=== PATIENT | female | born 1970 | race Caucasian/White ===

== ENCOUNTER 2016-08-06 17:25 | Observation (INO) ==
--- NOTE | 2016-08-06 17:31 | Emergency Department Note ---
Disposition Clinical Impression: Headache, Smoker, Family history of stroke, Left-sided weakness Disposition: Admitted As Inpatient General Adult HPI - General Stated complaint: Headache, nausea, "left side feels funny" Time Seen by Provider: 08/06/16 17:31 - History of Present Illness HPI Narrative: 46-year-old female reports to the emergency department complaining of high blood pressure and a headache. She states her headache has been waxing and waning and is been present for the last day or so. There is no history of sudden "thunder clap" type headache. There is no history of head trauma neck stiffness rash or fever. No convulsions or confusion no trouble walking talking hearing seeing or speaking. The patient reports today the headache got worse at about 12 noon. At about 4:30 PM today she noticed her left upper and left lower extremities getting weaker. There is no history of dysarthria or dysphagia, no difficulty seeing or swallowing. There is no history of chest pain or shortness of breath. No abdominal pain vomiting or diarrhea. There is no history of bowel or bladder problems. No acute back pain. No cough runny nose or ear pain or sore throat. There is no history of currently. The patient is not anticoagulated and has not had recent surgery. She takes she had a history of TIA in the past, she is a smoker and describes a strong family history of cerebrovascular disease. The patient was able to drive herself here. She is able to walk. The patient states she has been taking care of a sick friend. The patient denies significant anxietal symptoms. Patient reports she has occasional migraine headaches, but she has never had neurologic symptoms with those headaches. The patient is worried about a stroke. - Related Data Previous Rx's Medication Instructions Recorded Naproxen [Naprosyn] 500 mg PO BID #10 tablet 10/21/15 Sulfamethoxazole/Trimeth DS 1 each PO BID #14 tablet 05/05/16 [Bactrim DS] Allergies Allergy/AdvReac Type Severity Reaction Status Date / Time No Known Allergies Allergy Verified 05/05/16 20:21 All systems ED: reviewed and negative except as stated. Past Medical History - Past Medical History Medical history: Reports: no medical history, other (Smoker) Psychiatric history: Reports: no psych history - Social History Smoking Status: Current every day smoker Alcohol use: Reports: none Drug use: Reports: none Physical Exam - General Limitations: no limitations - Head Head exam: atraumatic, normocephalic, normal inspection - Eye Eye exam: Present: normal appearance, PERRL, EOMI. Absent: scleral icterus, conjunctival injection, miosis, mydriasis - ENT ENT exam: normal exam, normal oropharynx, mucous membranes moist, TM's normal bilaterally, normal external ear exam - Neck Neck exam: Present: normal inspection, full ROM, trachea midline. Absent: tenderness, meningismus - Chest Chest inspection: Present: symmetric chest wall rise. Absent: tenderness - Respiratory Respiratory exam: Present: normal lung sounds bilaterally. Absent: respiratory distress, wheezes, accessory muscle use, prolonged expiratory phase - Cardiovascular Cardiovascular exam: Present: regular rate, normal rhythm, normal heart sounds - Abdominal Exam Abdominal exam: Present: soft, Non-Tender, normal bowel sounds. Absent: tenderness, distention, guarding, rebound, rigidity - Extremities Exam Extremities exam: Present: normal inspection, full ROM, normal capillary refill. Absent: tenderness, pedal edema, joint swelling, calf tenderness - Expanded Lower Extremity Exam Upper leg exam: Present: normal inspection, full ROM Knee exam: Present: normal inspection, full ROM Lower leg exam: Absent: Homans' sign Ankle exam: Present: normal inspection, full ROM Foot/toe exam: Present: normal inspection, full ROM Neurovascular/Tendon exam: Present: normal capillary refill. Absent: motor deficit, sensory deficit, tendon deficit, extremity cold to touch, pallor - Back Exam Back exam: Present: normal inspection, full ROM. Absent: tenderness, CVA tenderness (R), CVA tenderness (L), vertebral tenderness - Neurological Exam Neurological exam: Present: alert, oriented X3, CN II-XII intact, motor sensory deficit (The patient's muscle strength in the left upper and left lower extremity are weak compared to the right. She does have an abnormal finger to nose test on the left.) - Psychiatric Psychiatric exam: Present: normal affect, normal mood - Skin Skin exam: Present: warm, dry, intact, normal color. Absent: rash, cyanosis, diaphoresis, erythema, pallor Course - Reevaluation(s) Reevaluation #1: Initial history, the patient reports she had a TIA a few years ago. She states she had an MRI at that time. The patient has no history of angelina CVA. She states she has never had any neurologic symptoms with headaches or migraine type events. Reevaluation #2: The radiologist called, head CT negative. EKG sinus rhythm without acute findings. CBC PT/INR negative. Glucose in the 130s. CXR pending, [facility] technical consultant pending. Vital Signs Temperature 97.9 F 08/06/16 17:33 Pulse Rate 96 08/06/16 17:33 Respiratory Rate 18 08/06/16 17:33 Blood Pressure 128/82 08/06/16 17:33 O2 Sat by Pulse Oximetry 99 08/06/16 17:33 Temperature 97.9 F 08/06/16 17:33 Pulse Rate 75 08/06/16 18:17 Respiratory Rate 18 08/06/16 18:17 Blood Pressure 124/55 08/06/16 18:17 O2 Sat by Pulse Oximetry 99 08/06/16 17:33 Oxygen Delivery Oxygen Delivery Room Air Medical Decision Making - MDM Narrative Medical decision making narrative: Teleconference with Dr. Jean, neurologist, [facility], NIH stroke scale 1, no TPA, recommends hospitalization for stroke work up. Aspirin ordered in the ED as well as Dilaudid and Zofran. I discussed the case with , [facility], [place] to admit at this institution with neurology consult. MRI head with and without contrast recommended, MRI head with and without contrast ordered. The patient is currently stable. She is a smoker with a family history of CVA, and self-reported history of TIA, she also has a history of migraine headaches, she may have a migraine or migraine variant or possible low- grade cerebral ischemia. Based on her presentation, risk factors and consultation with the neurologists, I felt it would be appropriate to admit the patient to this facility, I discussed the case with the hospitalist on-call who has accepted the patient to their care. - Lab Data Lab results reviewed: Yes I reviewed the patient's lab results. Result diagrams: 08/06/16 17:41 08/06/16 17:41 Lab Results 08/06/16 08/06/16 08/06/16 Range/Units 17:41 17:41 17:41 WBC 9.7 (4.3-11.1) K/mcL RBC 4.77 (3.82-4.97) M/mcL Hgb 14.2 (11.5-15.4) g/dL Hct 42.7 (35.3-44.9) % MCV 89.5 (83.0-100.0) fL MCH 29.8 (28.0-33.3) pg MCHC 33.3 (31.6-35.5) g/dL RDW 12.6 (11.5-14.5) % Plt Count 312 (140-400) K/mcL MPV 9.8 (9.4-12.4) fL Immature Gran % 0.2 (0-4) % Seg Neutrophils % 50.2 % Lymphocytes % 40.3 % Monocytes % 6.4 % Eosinophils % 2.4 % Basophils % 0.5 % Neutrophils # 4.9 (1.6-8.9) K/mcL Lymphocytes # 3.9 (0.6-4.6) K/mcL Monocytes # 0.6 (0.0-1.3) K/mcL Eosinophils # 0.2 (0.0-0.6) K/mcL Basophils # 0.1 (0.0-0.2) K/mcL PT 11.0 (9.4-12.1) Seconds INR 1.0 APTT 33.2 (26.0-36.0) Seconds Sodium 143 (136-145) mEq/L Potassium 3.5 (3.5-4.5) mEq/L Chloride 107 (98-109) mEq/L Carbon Dioxide 25 (19-29) mEq/L BUN 8 (7-20) mg/dL Creatinine 0.86 (0.57-1.11) mg/dL Est GFR ( Amer) > 60 (> 60) Est GFR (Non-Af Amer) > 60 (> 60) BUN/Creatinine Ratio 9 (6-26) Glucose 132 H (70-99) mg/dL Calculated Osmolality 296 (280-300) Lactic Acid (0.5-2.2) mmol/L Calcium 9.1 (8.6-10.8) mg/dL Total Bilirubin (0.2-1.2) mg/dL Direct Bilirubin (0.0-0.5) mg/dL Indirect Bilirubin (0.0-1.2) mg/dL AST (5-34) Units/L ALT (0-55) Units/L Alkaline Phosphatase (38-126) Units/L Troponin I (0-0.03) ng/mL C-Reactive Protein (Less than 5) mg/L Serum Total Protein (6.0-8.3) g/dL Albumin (3.5-5.0) g/dL Globulin (2.4-3.5) g/dL Albumin/Globulin Ratio (1.1-2.2) Salicylates < 5.0 L (15-30) mg/dL Acetaminophen < 1.0 L (10-30) mcg/mL 08/06/16 08/06/16 08/06/16 Range/Units 17:41 17:41 17:41 WBC (4.3-11.1) K/mcL RBC (3.82-4.97) M/mcL Hgb (11.5-15.4) g/dL Hct (35.3-44.9) % MCV (83.0-100.0) fL MCH (28.0-33.3) pg MCHC (31.6-35.5) g/dL RDW (11.5-14.5) % Plt Count (140-400) K/mcL MPV (9.4-12.4) fL Immature Gran % (0-4) % Seg Neutrophils % % Lymphocytes % % Monocytes % % Eosinophils % % Basophils % % Neutrophils # (1.6-8.9) K/mcL Lymphocytes # (0.6-4.6) K/mcL Monocytes # (0.0-1.3) K/mcL Eosinophils # (0.0-0.6) K/mcL Basophils # (0.0-0.2) K/mcL PT (9.4-12.1) Seconds INR APTT (26.0-36.0) Seconds Sodium (136-145) mEq/L Potassium (3.5-4.5) mEq/L Chloride (98-109) mEq/L Carbon Dioxide (19-29) mEq/L BUN (7-20) mg/dL Creatinine (0.57-1.11) mg/dL Est GFR ( Amer) (> 60) Est GFR (Non-Af Amer) (> 60) BUN/Creatinine Ratio (6-26) Glucose (70-99) mg/dL Calculated Osmolality (280-300) Lactic Acid 1.9 (0.5-2.2) mmol/L Calcium (8.6-10.8) mg/dL Total Bilirubin 0.5 (0.2-1.2) mg/dL Direct Bilirubin 0.2 (0.0-0.5) mg/dL Indirect Bilirubin 0.3 (0.0-1.2) mg/dL AST 13 (5-34) Units/L ALT 13 (0-55) Units/L Alkaline Phosphatase 106 (38-126) Units/L Troponin I 0.01 (0-0.03) ng/mL C-Reactive Protein 10 H (Less than 5) mg/L Serum Total Protein 7.2 (6.0-8.3) g/dL Albumin 3.8 (3.5-5.0) g/dL Globulin 3.4 (2.4-3.5) g/dL Albumin/Globulin Ratio 1.1 (1.1-2.2) Salicylates (15-30) mg/dL Acetaminophen (10-30) mcg/mL - Radiology Data Radiology results reviewed: Yes I reviewed the patient's radiology results.
[2016-08-06 17:52] LABS: Basophils # 0.1 K/mcL (0.0-0.2); Basophils % 0.5 %; Eosinophils # 0.2 K/mcL (0.0-0.6); Eosinophils % 2.4 %; Hematocrit 42.7 % (35.3-44.9); Hemoglobin 14.2 g/dL (11.5-15.4); Immature Granulocytes % 0.2 % (0-4); Lymphocytes # 3.9 K/mcL (0.6-4.6); Lymphocytes % 40.3 %; Mean Corpuscular HGB Conc 33.3 g/dL (31.6-35.5); Mean Corpuscular Hemoglobin 29.8 pg (28.0-33.3); Mean Corpuscular Volume 89.5 fL (83.0-100.0); Mean Platelet Volume 9.8 fL (9.4-12.4); Monocytes # 0.6 K/mcL (0.0-1.3); Monocytes % 6.4 %; Neutrophils # 4.9 K/mcL (1.6-8.9); Platelet Count 312 K/mcL (140-400); Red Blood Count 4.77 M/mcL (3.82-4.97); Red Cell Distribution Width 12.6 % (11.5-14.5); Segmented Neutrophils % 50.2 %
[2016-08-06 18:00] LABS: Activated Partial Thrombo Time 33.2 Seconds (26.0-36.0)
[2016-08-06 18:02] LABS: BUN/Creatinine Ratio 9 (6-26); Blood Urea Nitrogen 8 mg/dL (7-20); Calcium 9.1 mg/dL (8.6-10.8); Carbon Dioxide 25 mEq/L (19-29); Chloride 107 mEq/L (98-109); Glucose 132 mg/dL (70-99); Osmolality,Calculated 296 (280-300); Potassium 3.5 mEq/L (3.5-4.5); Sodium 143 mEq/L (136-145); eGFR For African Americans > 60 (> 60); eGFR For Non-African Americans > 60 (> 60)
[2016-08-06 18:04] LABS: Albumin 3.8 g/dL (3.5-5.0); Albumin/Globulin Ratio 1.1 (1.1-2.2); Bilirubin,Direct 0.2 mg/dL (0.0-0.5); Bilirubin,Indirect 0.3 mg/dL (0.0-1.2); Bilirubin,Total 0.5 mg/dL (0.2-1.2); Globulin 3.4 g/dL (2.4-3.5); Total Protein 7.2 g/dL (6.0-8.3)
[2016-08-06 18:17] LABS: Acetaminophen < 1.0 mcg/mL (10-30); Salicylate < 5.0 mg/dL (15-30)
[2016-08-06] MEDS ORDERED: Aspirin 325 MG TABLET PO ONE (18:19)
[2016-08-06] MEDS ORDERED: Ondansetron 4 MG/2 ML VIAL IVP ONE (18:19)
[2016-08-06] MEDS ORDERED: *HR* HYDROmorphone (PF) 1 MG/ML SYRINGE IVP ONE (18:19)
[2016-08-06] MEDS ORDERED: Naloxone 0.4 MG/ML INJ IVP PRN (19:58)
[2016-08-06] MEDS ORDERED: Ondansetron 4 MG/2 ML VIAL IVP PRN (19:58)
[2016-08-06] MEDS ORDERED: Acetaminophen 325 MG TABLET PO PRN (19:58)
[2016-08-06] MEDS ORDERED: Acetaminophen/Aspirin/Caffeine TABLET PO PRN (20:02)
--- NOTE | 2016-08-06 20:21 | Internal Med History&Physical ---
Date of Encounter: 08/06/16 Time of Encounter: 19:20 Assessment and Plan (1) DVT prophylaxis Current visit: Yes Status: Acute Lovenox subcutaneously (2) Headache Current visit: Yes Status: Acute Patient has a history of migraine. Consider migraine attack. - put patient with close monitoring. - Symptomatic treatment. - Treat her nausea and vomiting. - IV fluid because patient has poor intake. - Neurology consult by emergency room. Will see patient in a.m. Qualifiers: Headache type: unspecified Headache chronicity pattern: acute headache Qualified Code(s): R51 - Headache (3) Smoker Current visit: Yes Status: Acute Patient has a history of smoking. Decrease to 2 cigarettes per day now. Smoking cessation education done. (4) Left-sided weakness Current visit: Yes Status: Acute Etiology is undetermined. Possibly due to migraine or TIA. MRI has been done and result is unremarkable. - Patient has history of TIA. And a family history of CVA. - We will place patient on continuous cardiac monitoring to rule out arrhythmia. - Echocardiogram and duplex carotid has been placed. - Closely monitor patient, neuro check every 2 hours - Neurology consult will see patient in a.m. - Keep patient on aspirin 81mg qd. Internal Medicine - H&P: HPI Chief complaint: Headache and left sided weakness Admitted From: Home Plans for Post Hospital Care: Home History of present illness: Ms. Palomino is a 46 year old female present to ER for headache and left-sided weakness and tingling since noon. Patient said she has a history of migraine. Headache started around noon time, located on the left side of the head. With nausea and the patient vomited once. The vomiting is stomach content, no blood in it. Since about 4 PM to 4:30 PM, patient experienced left-sided weakness and a tingling. She denies slurred speech, difficulty swallowing, choking or cough during eating or drinking. She has no fever, no photophobia, no chest pain, no shortness of breath, no abdominal pain, no diarrhea, no urinary problems. Patient was sent to ER and CAT scan and MRI has been done, both results are unremarkable. [facility] neurology consult was called by emergency room, no candidate for TPA. Neurology in our hospital also has been counseled. Recommended admitted to hospital for further management. I discussed the CODE STATUS with patient. She is a full code. Past Med Surg Social Fam HX - Past Medical History Medical history: no medical history, other (Smoker) Psychiatric history: no psych history - Social History Smoking Status: Current every day smoker Alcohol use: none Drug use: none Internal Medicine - H&P: Meds Naproxen [Naprosyn] 500 mg PO BID #10 tablet 10/21/15 [Rx] Sulfamethoxazole/Trimeth DS [Bactrim DS] 1 each PO BID #14 tablet 05/05/16 [Rx] Allergies No Known Allergies Allergy (Verified 05/05/16 20:21) All Systems PM: A 10-system review of systems was performed and is negative for pertinent findings except as documented above in the HPI. - Constitutional Vitals: Temp Pulse Resp BP Pulse Ox 97.9 F 76 18 118/66 99 08/06/16 17:33 08/06/16 20:06 08/06/16 20:06 08/06/16 20:06 08/06/16 17:33 General appearance: Present: mild distress, A&O X 3, answers questions appropriately - Head Head exam: Present: atraumatic, normocephalic - Eye Eye exam: Present: PERRL, conjuntiva pink, sclera anicteric Pupils: Present: PERRL - Neck Neck exam general surgery: Present: supple, trachea midline. Absent: lymphadenopathy - Respiratory Respiratory exam: Present: CTAB. Absent: accessory muscle use, rales, rhonchi, wheezes - Cardiovascular Cardiovascular exam: Present: RRR, +S1, +S2. Absent: diastolic murmur, gallop, rubs, systolic murmur - GI/Abdominal GI/Abdominal exam: Present: normal bowel sounds, soft, no peritoneal signs. Absent: distended, tenderness - Extremities Exam Extremities exam: Present: warm, radial pulses palpable and symetrical. Absent : calf tenderness, cyanotic, pedal edema - Neurological Exam Neurological exam: Present: CN II-XII intact, motor sensory deficit (Left upper extremity motor 5-/5.), oriented X3, no focal deficits. Absent: pronater drift , facial droop, speech deficit - Skin Skin exam: Present: dry, intact Internal Med - H&P Results - Labs CBC & Chem 7: 08/06/16 17:41 08/06/16 17:41 - EKG Data -: EKG Interpreted by Myself EKG shows normal: sinus rhythm Rate: normal
[2016-08-06] MEDS: 0.9 % Sodium Chloride 1,000 ML IVC SCH (23:27)
[2016-08-06 23:44] LABS: Amphetamine Screen,Urine Positive ng/mL (Cutoff=1000); Barbiturate Screen,Urine Negative ng/mL (Cutoff=200); Benzodiazepines Screen,Urine Negative ng/mL (Cutoff=200); Cannabinoid Screen,Urine Negative ng/mL (Cutoff = 50); Cocaine Screen,Urine Negative ng/mL (Cutoff= 300); Opiate Screen,Urine Negative ng/mL (Cutoff=300); Phencyclidine Screen,Urine Negative ng/mL (Cutoff=25)
[2016-08-07 03:32] LABS: Basophils # 0.1 K/mcL (0.0-0.2); Basophils % 0.5 %; Eosinophils # 0.3 K/mcL (0.0-0.6); Eosinophils % 2.6 %; Hematocrit 39.7 % (35.3-44.9); Hemoglobin 13.2 g/dL (11.5-15.4); Immature Granulocytes % 0.4 % (0-4); Lymphocytes # 4.5 K/mcL (0.6-4.6); Lymphocytes % 39.7 %; Mean Corpuscular HGB Conc 33.2 g/dL (31.6-35.5); Mean Corpuscular Volume 90.2 fL (83.0-100.0); Mean Platelet Volume 10.2 fL (9.4-12.4); Monocytes # 0.8 K/mcL (0.0-1.3); Monocytes % 7.2 %; Neutrophils # 5.6 K/mcL (1.6-8.9); Platelet Count 282 K/mcL (140-400); Red Cell Distribution Width 12.8 % (11.5-14.5); Segmented Neutrophils % 49.6 %
[2016-08-07 03:46] LABS: BUN/Creatinine Ratio 13 (6-26); Blood Urea Nitrogen 9 mg/dL (7-20); Calcium 8.9 mg/dL (8.6-10.8); Carbon Dioxide 24 mEq/L (19-29); Chloride 108 mEq/L (98-109); Glucose 119 mg/dL (70-99); Osmolality,Calculated 290 (280-300); Potassium 3.7 mEq/L (3.5-4.5); Sodium 140 mEq/L (136-145); Triglycerides 155 mg/dL (< 150); eGFR For African Americans > 60 (> 60); eGFR For Non-African Americans > 60 (> 60)
[2016-08-07 03:47] LABS: Chol/HDL Ratio 4.6 (0-4.9); Cholesterol 160 mg/dL (< 200); HDL Cholesterol 35 mg/dL (40-59); LDL Cholesterol,Calculated 94 mg/dL (0-99)
[2016-08-07] MEDS ORDERED: *HR* Enoxaparin 40 MG/0.4 ML SYRINGE SQ SCH (06:00)
[2016-08-07] MEDS: *HR* HYDROcodone/Acet 5/325 mg TABLET PO PRN ×2 (06:48→11:29)
--- NOTE | 2016-08-07 07:15 | Electrocardiograph Report ---
[place] [address] Test Date: 2016-08-06 Pat Name: Yazmin Palomino Department: 105 Room: 3A42 Gender: F Mental Retardation Nurse: MESSI : 1970 Requested By: Jese Amaral Order Number: [id number] Reading MD: Sachin Rodriguez MD Measurements Intervals [place] Rate: 92 P: 63 TX: 137 QRS: 55 QRSD: 84 T: 46 QT: 344 QTc: 394 Interpretive Statements SINUS RHYTHM Electronically Signed On 08-07-2016 7:13:28 EDT by Sachin Rodriguez MD
[2016-08-07] MEDS ORDERED: Aspirin Enteric Coated 81 MG Tablet PO SCH (09:00)
--- NOTE | 2016-08-07 09:04 | Neurology - Consult Note ---
Date of Encounter: 08/07/16 Time of Encounter: 08:57 Assessment and Plan (1) Headache Current Visit: Yes Status: Acute Acute and chronic headaches. Does have photophobia on exam. Suspect most likely migraine headache at this time. She had associated nausea and described "seeing stars" at the onset of her headache. She states she has never been diagnosed with migraines by a physician before. Recommended discussion and followup with her primary care physician for more long term care social worker treatment of her headaches with referral to neurology if they are not able to adequately resolve her headaches. Currently improving. Qualifiers: Headache type: unspecified Headache chronicity pattern: acute headache Qualified Code(s): R51 - Headache (2) Left-sided weakness Current Visit: Yes Status: Resolved Resolved at this time. Head CT and brain MRI were both negative for any acute intracranial abnormalities. Most likely secondary to TIA. Patient with history of smoking. Recommended smoking cessation. MRI did demonstrate a few scattered tiny foci in the periventricular and subcortical white matter. This correlates with her history of chronic headaches , most likely migrainous type. History of Present Illness Chief complaint: Headache, nausea HPI: Ms. Palomino is a 46 year old female with PMH of seasonal allergies and chronic headaches who presented to the ER on 08/06 for left sided weakness and headache. Her symptoms started with a headache at noon yesterday with nausea and vomiting x1. She states that she first noticed the numbness in her left upper extremity at 4:45pm on 08/06, and it had not resolved until this morning when she awoke. She states that the associated headache she had with this numbness is different than her typical headaches. This headache was more severe and lateralizing to the left side of the head. She could only describe the pain as if feeling as if the top of her head were going to explode. Her only remaining symptom at this time is continued headache, which has decreased in severity, and some continued tingling in the fingers of her left hand. She had associated nausea and tingling in her ears. She denies neck stiffness. She denied slurring of her speech, facial asymmetry, and chest pain. She has had one episode similar to this years ago with no residual symptoms. She is an active smoker. Head CT and brain MRI were both negative for acute changes. Her chronic headaches she associates with allergies. She takes Excedrin at home for alleviation of her symptoms. She states that currently at this time of year she will have 2-3 headaches per week. Past Med Surg Social Fam HX - Past Medical History Medical history: no medical history Psychiatric history: no psych history - Past Surgical History Surgical History: appendectomy, breast surgery, hysterectomy - Social History Smoking Status: Current every day smoker Packs per day: less than a pack Alcohol use: occasionally Drug use: none Medications and Allergies Aspirin/Acetaminophen/Caffeine [Excedrin Migraine Caplet] 2 tab PO Q6H PRN 08/07 [History] Ibuprofen [Motrin] 800 mg PO Q8HR PRN 08/07/16 [History] Loratadine/Pseudoephedrine [[facility]vs Loratadine-D 24Hr Tablet] 1 each PO DAILY PRN [History] Allergies Bee Pollen Adverse Reaction (Verified 08/07/16 08:48) Swelling of Lip/Tongue/Throat [place] Adverse Reaction (Verified 08/07/16 08:48) Swelling of Lip/Tongue/Throat All Systems: A 10-system review of systems was performed and is negative for pertinent findings except as documented above in the HPI. Review of Systems: Reviewed and negative other than what is stated in the HPI. Physical Examination - Vital Signs Vital Signs: Initial Vital Signs Temp Pulse Resp BP Pulse Ox 97.9 F 96 18 128/82 99 08/06/16 17:33 08/06/16 17:33 08/06/16 17:33 08/06/16 17:33 08/06/16 17:33 - Constitutional General appearance: comfortable - Neurologic Detailed motor examination: full strength in all major muscle groups Motor examination - right side: 5/5: deltoids, biceps, triceps, wrist flexion, wrist extension, pin worker, hip flexors, tibialis Anterior, quadriceps, toe extension (EHL), plantarflexion Motor examination - left side: 5/5: deltoids, biceps, triceps, wrist flexion, wrist extension, hip flexors, pin worker, quadriceps, tibialis Anterior, toe extension (EHL), plantarflexion Detailed sensory examination: intact Reflex and gait examination: intact Reflexes: Biceps: 2+, Triceps: 2+, Brachioradialis: 2+, Patella: 2+, Achilles: 1 + Mental Status Examination: awake, alert, oriented to person, oriented to place, oriented to time, follows commands appropriately, answers questions appropriately, no agnosia, makes eye contact Cranial nerve examination: PERRL, EOMI, visual alston intact, corneal reflexes brisk symmetrically, sensory to face intact (subjectively reports some decreased sensation on the left side of her face), mastication intact, no facial asymmetry is present, no dysarthria, hearing is intact symmetrically, soft palate elevates bilaterally upon phonation, flexes SCM and trapezius muscles symmetrically with full power, tongue protrudes midline, no atrophy or facial fasiculations present Cerebellar examination: no dysmetria, performs finger to nose and heel to rocha symmetrically without ataxia Results - Laboratory Findings CBC and BMP: 08/07/16 03:13 08/07/16 03:13 Abnormal lab findings: Abnormal lab results WBC 11.2 K/mcL (4.3-11.1) H 08/07/16 03:13 Glucose 119 mg/dL (70-99) H 08/07/16 03:13 POC Glucose 174 (58-89) H 08/06/16 17:36 C-Reactive Protein 10 mg/L (Less than 5) H 08/06/16 17:41 Triglycerides 155 mg/dL (< 150) H 08/07/16 03:13 VLDL Cholesterol, Calc 31 mg/dL (< 31) H 08/07/16 03:13 HDL Cholesterol 35 mg/dL (40-59) L 08/07/16 03:13 Salicylates < 5.0 mg/dL (15-30) L 08/06/16 17:41 Acetaminophen < 1.0 mcg/mL (10-30) L 08/06/16 17:41 Ur Amphetamines Screen Positive ng/mL ([id number]) H 08/06/16 23:26 Consult Discharge Plan - Plan Referrals: NO,PCP [Primary Care Provider] -
--- NOTE | 2016-08-07 12:09 | ECHO - Doppler Report ---
Echo with Saline Contrast Name: Yazmin Palomino Date of Study: 08/07/2016 Date: 1970 Ht: 65.0 in Medical Record#: [id number] Age: 46 Wt: 138.0 lb Gender: Female BSA: 1.69 Order #: [id number] Location: [facility] Room #: 3A42 Reading Physician: Catarina Mccoy DO Fabrication Department Supervisor: Lilia Sumner Ordering Physician: Mayo Choudhury MD Primary Physician: Sydney Morales CNP Indications: Transient Ischemic Attack Impressions: LVEF 60-65%. Normal left ventricular size and systolic function. Normal diastolic function of the left ventricle. Normal right ventricular size and function. No significant valvular dysfunction. No pulmonary hypertension. There is evidence of a PFO with agitated saline contrast. Left Ventricular Wall Motion: Rest Echo Findings All wall segments showed normal motion. Findings: Study Quality * Technically adequate exam. ECG Findings * Normal sinus rhythm. Left Ventricle * Normal LV chamber size, wall thickness and function. * Normal left ventricular diastolic function. * LVEF 60-65%. Left Atrium * Normal left atrial size. Mitral Valve * Normal mitral valve structure. * No mitral stenosis. * Trace mitral regurgitation. Aortic Valve * No aortic regurgitation. * Aortic valve not well visualized. * No aortic stenosis. Tricuspid Valve * Tricuspid valve not well visualized. * Trace tricuspid regurgitation. * Estimated RA pressure is 3 mmHg. * Estimated RVSP is 22 mmHg. * No pulmonary hypertension. Pulmonic Valve * Pulmonic valve is not well visualized. * No pulmonic stenosis. * No pulmonic regurgitation. Pulmonary Artery * Pulmonary artery not well visualized. Right Ventricle * Normal right ventricular structure and function. Right Atrium * Normal right atrial size. Pericardium * There is no pericardial effusion present. Aorta * Not well visualized. IVC * The IVC is not dilated. * > 50% respiratory change Interatrial Septum * There is a PFO by agitated saline contrast, History History of Smoking Years 20 Packs 0.5 Family History of CAD Contrast: Agitated saline 20 ml. Measurements: BP: 97/ 60 2D Normal Values RVIDd: 2.60 cm <2.7 cm IVSd: 1.10 cm 0.6 - 1.0 cm LVIDd: 3.20 cm 3.7 - 5.6 cm LVPWd: 1.00 cm 0.6 - 1.1 cm LVIDs: 2.30 cm 1.5 - 3.6 cm AO: 2.00 cm < 4.0 cm LA: 3.30 cm 2.0 - 4.0cm LA volume: 24 Mitral Valve Peak E:.90 m/sec Peak A:.78 m/sec E/A Ratio:1.2 Peak E' Lat David:14.5 cm/s Peak E' Med David:8.58 cm/s E/E' Lat Ratio:6.2 E/E' Med Ratio:10.5 Tricuspid Valve TV Regurg Peak Grad: 19.00mmHg TV Regurg Peak David: 2.16m/sec Updated by Catarina Mccoy on 08/07/2016 12:02:33 PM electronically signed on 08/07/2016 12:03:14 PM with status of Final Wall Motion [place]: 1=Normal, 2=Hypokinesis, 3=Akinesis, 4=Dyskinesis, 5=Aneurysmal, 6=Hyperkinetic, X=Not Visualized (Blank)=Missing
[2016-08-07] MEDS: 0.9 % Sodium Chloride 1,000 ML IVC SCH (13:44)
[2016-08-07 14:31] VITALS: BP 109/52
--- NOTE | 2016-08-07 14:42 | Discharge Summary ---
Date of Encounter: 08/07/16 Time of Encounter: 09:20 - Discharge Diagnosis (1) Headache Priority: Primary Status: Chronic Comments: Patient reports chronic headaches for years. This time headache was coronal left greater than right. She says it she still has the headache but it is better than it was yesterday. She reports confusion nausea and vomiting and some diaphoresis. She denies any shortness of breath or vision changes, however that she did have photophobia. These are most likely high-grade headaches. Patient was seen by neurology and will be sent home with a prescription for sumatriptan 100 mg daily as needed and Compazine 10 mg by mouth when necessary nausea. Patient did have left-sided weakness, greater in left leg and left arm. Per neurology this is normal status post migraine it will resolve in a few days. CT head and brain MRI were negative for any acute intracranial abnormalities. MRI did demonstrate a few scattered tiny foci in the periventricular and subcortical white matter mostly correlates with her history of chronic headaches. Qualifiers: Headache type: unspecified Headache chronicity pattern: acute headache Qualified Code(s): R51 - Headache (2) Smoker Priority: Secondary Status: Acute Comments: Patient not interested in smoking cessation education or tools at this time. (3) Left-sided weakness Priority: Secondary Status: Resolved Comments: Plan as above (4) DVT prophylaxis Priority: Secondary Status: Acute Comments: Lovenox subcutaneous - Discharge Medications Prescriptions: Prochlorperazine Maleate [Compazine] 10 mg PO Q6HR PRN #40 tablet PRN Reason: Nausea SUMAtriptan [Imitrex] 100 mg PO DAILY PRN #15 tablet PRN Reason: Headache Home Medications: Aspirin/Acetaminophen/Caffeine [Excedrin Migraine Caplet] 2 tab PO Q6H PRN 08/07 [History] Ibuprofen [Motrin] 800 mg PO Q8HR PRN 08/07/16 [History] Loratadine/Pseudoephedrine [Cvs Loratadine-D 24Hr Tablet] 1 each PO DAILY PRN [History] Prochlorperazine Maleate [Compazine] 10 mg PO Q6HR PRN #40 tablet 08/07/16 [Rx] SUMAtriptan [Imitrex] 100 mg PO DAILY PRN #15 tablet 08/07/16 [Rx] Allergies/Adverse Reactions: Allergies Bee Pollen Adverse Reaction (Verified 08/07/16 08:48) Swelling of Lip/Tongue/Throat [place] Adverse Reaction (Verified 08/07/16 08:48) Swelling of Lip/Tongue/Throat Procedures/tests Complete & Pending: Procedures Performed prior 72 hours Category Date Time Status EV carotid duplex imaging BI Routine Y 08/07/16 20:04 Completed EV echocardiogram Routine Y 08/07/16 20:04 Completed Date of admission: 08/06/16 19:36 Primary care physician: PCP NO Discharging clinician: Isabella Burgos Anticipated date of discharge: 08/07/16 - Patient Status Disposition: Home, Self-Care Condition: Good Functional capacity at discharge: independent ambulation Overall status at discharge: patient is back to baseline - Discharge Instructions Follow Up With: NO,PCP [Primary Care Provider] - Forms: ED Satisfaction Letter Additional Instructions: Take your Sumatriptan and Compazine as needed for headache and nausea. Do not take more than prescribed. You will need to get refills from neurology or your PCP. Follow up with your primary care physician in the next week for a follow up visit. You will also need to follow up with your PCP for referral to have evaluation of thyroid nodule. Return to the ER as needed for any other problems or concerns or if your symptoms return or worsen. - Diet and Activity Activity: increase activity as tolerated Diet: advance to your usual diet Interval History: Mrs. Callaway is a 46-year-old female with past medical history seasonal allergies and chronic headaches who presented to the ER yesterday for left- sided weakness and headache. Headache was coronal left greater than right. She says it still remained significantly better than yesterday. She did report confusion, nausea and vomiting, diaphoresis. She denies shortness of breath or vision changes, but did have photophobia. She also had left-sided weakness that remains today. It is more prominent in the left lower extremity and left upper extremity. She said she first noticed the numbness and left upper extremity and it did not resolve to this morning. She reports this headache is the same as she normally has but this was worse. She describes the pain as feeling like the top of her head is going to explode. CT head and MRI brain were negative for any acute abnormality. Dementia chronic changes consistent with chronic headache. She was evaluated by neurology and will follow up in 2 weeks in the office. Most likely diagnosis is migraine headache. Carotid Dopplers showed nonstenotic plaque right distal ICA possible higher velocities due to a diving vessel, normal on the left side. Echocardiogram shows LVEF of 6065% normal diastolic function and pulmonary hypertension no significant valvular dysfunction and there is evidence of a PFO with agitated saline contrast. Patient will be sent home with a prescription for sumatriptan 100 mg daily 1 as needed for headache and Compazine 10 mg by mouth when necessary nausea. Patient is stable and appropriate for discharge. Patient states she is not interested in smoking cessation or smoking cessation tools at this time. Hospital course: Ms. Palomino is a 46 year old female Time spent discussing smoking cessation with patient: 3 to 10 minutes - Time Spent with Patient Total time spent providing and/or coordinating discharge services: Less than 30 minutes - Constitutional Vitals: Temp Pulse Resp BP Pulse Ox 98.5 F 74 16 109/52 96 08/07/16 14:30 08/07/16 14:30 08/07/16 14:30 08/07/16 14:30 08/07/16 14:30 General appearance: Present: cooperative, A&O X 3, pleasant, no acute distress, answers questions appropriately - Head Head exam: Present: normal inspection - Eye Eye exam: Present: EOMI, normal appearance, PERRL, conjuntiva pink. Absent: nystagmus - ENT ENT exam: Present: mucous membranes moist, normal exam, normal external ear exam - Neck Neck exam general surgery: Present: normal inspection. Absent: lymphadenopathy , tenderness - Respiratory Respiratory exam: Present: CTAB. Absent: rales, respiratory distress, rhonchi, wheezes - Cardiovascular Cardiovascular exam: Present: RRR, +S1, +S2. Absent: diastolic murmur, systolic murmur - GI/Abdominal GI/Abdominal exam: Present: normal bowel sounds, soft. Absent: distended, hepatomegaly, tenderness - Extremities Exam Extremities exam: Present: normal capillary refill, normal inspection, warm, radial pulses palpable and symetrical. Absent: pedal edema, tenderness - Neurological Exam Neurological exam: Present: alert, oriented X3, no focal deficits, strengths equal and symetr throughout. Absent: motor sensory deficit, pronater drift, facial droop, speech deficit
--- NOTE | 2016-08-08 20:25 | Carotid Imaging Report ---
Carotid Duplex Patient Name:Yazmin Palomino Order Number:[id number] Procedure Date:08/07/2016 Date:1970Age:46 yrs Gender:Female Location:[facility] Room #: 3A42 Traveling Storekeeper:Lilia Sumner Referring MD:Mayo Choudhury MD automation qa lead:Sydney Morales, AUTOMOTIVE TECH[employer]OLOGY INSTRUCTOR Reading MD:Emory Keita MD Risk Factors Yes/No Hypertension No Diabetes No Hypercholesterolemia No Hx of TIA Yes Smoking Current Yes Impressions: The right carotid artery has minimal plaque throughout. The left carotid artery is normal throughout. Findings Carotid Duplex: Right: The right proximal common carotid artery has a PSV of 73 cm/s and a EDV of 21 cm/s. The right mid common carotid artery has a PSV of 79 cm/s and a EDV of 29 cm/s. The right distal common carotid artery has a PSV of 68 cm/s and a EDV of 22 cm/s. The right bifurcation has a PSV of 64 cm/s and a EDV of 22 cm/s. The right proximal internal carotid artery has a PSV of 90 cm/s and a EDV of 30 cm/s. The right mid internal carotid artery has a PSV of 102 cm/s and a EDV of 43 cm/s. There is nonstenotic plaque in the right distal internal carotid artery with a PSV of 114 cm/s and a EDV of 38 cm/s. There is smooth heterogeneous plaque. The right eca has a PSV of 98 cm/s and a EDV of 21 cm/s. The right vertebral artery has a PSV of 89 cm/s and a EDV of 22 cm/s. The distal ICA dives, possible reason for higher velocities? Left: The left proximal common carotid artery has a PSV of 98 cm/s and a EDV of 30 cm/s. The left mid common carotid artery has a PSV of 83 cm/s and a EDV of 26 cm/s. The left distal common carotid artery has a PSV of 85 cm/s and a EDV of 40 cm/s. The left bifurcation has a PSV of 75 cm/s and a EDV of 33 cm/s. The left proximal internal carotid artery has a PSV of 74 cm/s and a EDV of 33 cm/s. The left mid internal carotid artery has a PSV of 102 cm/s and a EDV of 45 cm/s. The left distal internal carotid artery has a PSV of 76 cm/s and a EDV of 31 cm/s. The left eca has a PSV of 94 cm/s and a EDV of 19 cm/s. The left vertebral artery has a PSV of 50 cm/s and a EDV of 17 cm/s. Carotid Results Right PSV EDV Assessment Proximal CCA 73 21 Mid CCA 79 29 Distal CCA 68 22 Bifurcation 64 22 Proximal ICA 90 30 Mid ICA 102 43 Distal ICA 114 38 ECA 98 21 Vertebral Artery 89 22 Left PSV EDV Assessment Proximal CCA 98 30 Mid CCA 83 26 Distal CCA 85 40 Bifurcation 75 33 Proximal ICA 74 33 Mid ICA 102 45 Distal ICA 76 31 ECA 94 19 Vertebral Artery 50 17 Ratio's Right ICA/CCA Ratio: 1.44 ICA/CCA Values: 114/79 Left ICA/CCA Ratio: 1.23 ICA/CCA Values: 102/83 Updated by Emory Keita MD on 08/08/2016 8:20:19 PM electronically signed on 08/08/2016 8:20:48 PM with status of Final
== END 2016-08-07 15:25 | disposition home or self-care (01) ==
LOC: EMEROO 17:25 → 3ANU 17:25 → SUATTDRO 19:36 → 3ANU 20:02
PROVIDERS: ADMIT Internal Medicine; ATTEND Internal Medicine

== ENCOUNTER 2017-02-04 00:40 | Observation (INO) ==
--- NOTE | 2017-02-04 00:58 | Emergency Department Note ---
Disposition Clinical Impression: Right leg pain, Myositis Disposition: Admitted As Inpatient Condition: Fair General Adult HPI - General Stated complaint: r leg swollen Time Seen by Provider: 02/04/17 00:54 - Related Data Home Medications Medication Instructions Recorded Confirmed Aspirin/Acetaminophen/Caffeine 2 tab PO Q6H PRN 08/07/16 08/07/16 [Excedrin Migraine Caplet] Ibuprofen [Motrin] 800 mg PO Q8HR PRN 08/07/16 08/07/16 Loratadine/Pseudoephedrine [Cvs 1 each PO DAILY PRN 08/07/16 02/04/17 Loratadine-D 24Hr Tablet] Previous Rx's Medication Instructions Recorded Prochlorperazine Maleate 10 mg PO Q6HR PRN #40 tablet 08/07/16 [Compazine] SUMAtriptan succinate [Imitrex] 100 mg PO DAILY PRN #15 tablet 08/07/16 Magic Mouthwash [Magic Mouthwash 10 ml PO QID PRN #240 ml 02/02/17 BLM] Allergies Allergy/AdvReac Type Severity Reaction Status Date / Time Bee Pollen AdvReac Swelling Verified 02/02/17 21:02 of Lip/Tongue/Throat [place] AdvReac Swelling Verified 02/02/17 21:02 of Lip/Tongue/Throat Past Medical History - Past Medical History Medical history: Reports: no medical history Surgical history: Reports: appendectomy, breast surgery, hysterectomy Psychiatric history: Reports: no psych history - Social History Smoking Status: Current every day smoker Alcohol use: Reports: occasionally Drug use: Reports: none Course Vital Signs Temperature 98.3 F 02/04/17 00:52 Pulse Rate 111 02/04/17 00:52 Respiratory Rate 22 02/04/17 00:52 Blood Pressure 115/76 02/04/17 00:52 O2 Sat by Pulse Oximetry 100 02/04/17 00:52 Temperature 97.9 F 02/04/17 04:18 Pulse Rate 79 02/04/17 04:18 Respiratory Rate 18 02/04/17 04:18 Blood Pressure 87/56 02/04/17 04:18 O2 Sat by Pulse Oximetry 100 02/04/17 04:18 Oxygen Delivery Oxygen Delivery Room Air Medical Decision Making - Lab Data Result diagrams: 02/04/17 02:00 02/04/17 02:00 Lab Results 02/04/17 02/04/17 Range/Units 02:00 02:00 WBC 16.2 H (4.3-11.1) K/mcL RBC 4.34 (3.82-4.97) M/mcL Hgb 13.1 (11.5-15.4) g/dL Hct 38.2 (35.3-44.9) % MCV 88.0 (83.0-100.0) fL MCH 30.2 (28.0-33.3) pg MCHC 34.3 (31.6-35.5) g/dL RDW 12.5 (11.5-14.5) % Plt Count 289 (140-400) K/mcL MPV 10.1 (9.4-12.4) fL Immature Gran % 0.4 (0-4) % Seg Neutrophils % 68.1 % Lymphocytes % 23.2 % Monocytes % 7.6 % Eosinophils % 0.4 % Basophils % 0.3 % Neutrophils # 11.0 H (1.6-8.9) K/mcL Lymphocytes # 3.8 (0.6-4.6) K/mcL Monocytes # 1.2 (0.0-1.3) K/mcL Eosinophils # 0.1 (0.0-0.6) K/mcL Basophils # 0.1 (0.0-0.2) K/mcL Sodium 139 (136-145) mEq/L Potassium 3.0 L (3.5-4.5) mEq/L Chloride 104 (98-109) mEq/L Carbon Dioxide 23 (19-29) mEq/L BUN 14 (7-20) mg/dL Creatinine 0.74 (0.57-1.11) mg/dL Est GFR ( Amer) > 60 (> 60) Est GFR (Non-Af Amer) > 60 (> 60) BUN/Creatinine Ratio 19 (6-26) Glucose 114 H (70-99) mg/dL Calculated Osmolality 289 (280-300) Calcium 9.3 (8.6-10.8) mg/dL Creatine Kinase 48 (29-168) Units/L Attestation Statement - Attestation Attestation: I examined this patient and my medical decision-making was reviewed with the Resident Physician. I agree with the documented findings, disposition and treatment plan as described except to the extent set forth below. [id number] time provided Patient complains of pain at the site of an intramuscular injection given yesterday. She states she is unable to bear weight. Pain radiates to her right hip. She also notes tingling in her distal right lower extremity. No cellulitis on exam. Patient appears very uncomfortable. She is teary The patient has localized pain with palpation several centimeters around the injection site. The area is firm but not tense. I suspect a muscular etiology of her symptoms. Both myself and the resident physician did discuss the patient 's presentation with the on-call orthopedic surgeon Dr. Zhang who recommends an imaging study of her affected extremity to evaluate for mass effect but states he does not think the patient has compartment syndrome based on our description of her symptoms
[2017-02-04] MEDS ORDERED: Ondansetron 4 MG/2 ML VIAL IVP ONE (01:37)
[2017-02-04] MEDS ORDERED: *HR* HYDROmorphone (PF) 1 MG/ML SYRINGE IVP ONE (01:37)
--- NOTE | 2017-02-04 01:46 | Emergency Department Note ---
Disposition Clinical Impression: Right leg pain Myositis Qualifiers: Myositis type: unspecified type Myositis location: lower extremity Laterality: right Qualified Code(s): M60.861 - Other myositis, right lower leg Disposition: Admitted As Inpatient Condition: Fair Referrals: Sydney Morales CNP [Primary Care Provider] - Time of Disposition: 03:53 Extremity Problem HPI - General Chief complaint: ED Extremity Problem,Nontraumatic Stated complaint: r leg swollen Time Seen by Provider: 02/04/17 00:54 Source: patient Limitations: no limitations Nursing Notes Reviewed: Yes Vital Signs Reviewed: Yes - History of Present Illness HPI Narrative: Patient is a 47-year-old female who presents to [facility] ED with a chief complaint of right lower extremity pain. Patient was seen here yesterday and was treated for strep throat with a Bicillin shot in her right anterior thigh. States she was doing okay up until around 7 PM tonight. States the pain intensified and involves her entire thigh. She has been unable to ambulate on it because it is so painful. Pt Subjective Complaint: extremity pain Onset (ago): hour(s) Consistency: Worsening Injury Location: right, lower extremity Pain Scale: 10 Radiation: proximal Improves with: nothing Worsens with: range of motion, weight bearing, walking, palpation Associated symptoms: Reports: denies other symptoms - Related Data Home Medications Medication Instructions Recorded Confirmed Aspirin/Acetaminophen/Caffeine 2 tab PO Q6H PRN 08/07/16 08/07/16 [Excedrin Migraine Caplet] Ibuprofen [Motrin] 800 mg PO Q8HR PRN 08/07/16 08/07/16 Loratadine/Pseudoephedrine [Cvs 1 each PO DAILY PRN 08/07/16 08/07/16 Loratadine-D 24Hr Tablet] Previous Rx's Medication Instructions Recorded Prochlorperazine Maleate 10 mg PO Q6HR PRN #40 tablet 08/07/16 [Compazine] SUMAtriptan succinate [Imitrex] 100 mg PO DAILY PRN #15 tablet 08/07/16 Magic Mouthwash [Magic Mouthwash 10 ml PO QID PRN #240 ml 02/02/17 BLM] Allergies Allergy/AdvReac Type Severity Reaction Status Date / Time Bee Pollen AdvReac Swelling Verified 02/02/17 21:02 of Lip/Tongue/Throat [place] AdvReac Swelling Verified 02/02/17 21:02 of Lip/Tongue/Throat All systems ED: reviewed and negative except as stated. Past Medical History - Past Medical History Attestation: Yes The following information was validated with the patient. Source: patient Medical history: Reports: no medical history Surgical history: Reports: appendectomy, breast surgery, hysterectomy Psychiatric history: Reports: no psych history - Social History Smoking Status: Current every day smoker Alcohol use: Reports: occasionally Drug use: Reports: none Physical Exam CONSTITUTIONAL: Alert and oriented X3, well-nourished, appears in pain HEAD: Normocephalic; atraumatic. EYES: EOMI, no scleral icterus. NOSE: The nose is normal in appearance without rhinorrhea RESP: Normal chest excursion with respiration; breath sounds clear and equal bilaterally; no wheezes, rhonchi, or rales CARD: Regular rhythm, without murmurs, rub or gallop ABD: Non-distended; non-tender, soft,without rigidity, rebound or guarding SKIN: Normal for age and race; warm and dry; no apparent lesions EXTREMITIES: Pulses are 2 plus and equal times 4 extremities, no peripheral edema. Pain out of proportion to my examination. Her thigh compartments are soft though extremely tender to palpation. Patient unable to dorsiflex or plantar flex her foot. - General Limitations: no limitations Course Course Narrative: Patient seen and examined. Right lower extremity pain. There was some concern for possible compartment syndrome. I discussed with orthopedic surgeon Dr. Zhang who states the findings do not seem consistent with acute compartment syndrome. He recommends getting a CT of the right lower extremity with IV contrast. We will place an IV, get some fluids and Dilaudid for pain and Zofran for nausea. We will also check some basic labs as well as a CPK level. - Reevaluation(s) Reevaluation #1: Patient CT scan shows some fluid and gas in the anterior thigh compartment. This could be consistent with injection versus myositis. The patient is unable to ambulate, we will go ahead and admit for observation along with orthopedic consultation. Discussed findings with Dr. Zhang who will be in this morning to evaluate the patient. I discussed with hospitalist Dr. Gresham who has accepted for patient for admission. Time: 03:52 Vital Signs Temperature 98.3 F 02/04/17 00:52 Pulse Rate 111 02/04/17 00:52 Respiratory Rate 22 02/04/17 00:52 Blood Pressure 115/76 02/04/17 00:52 O2 Sat by Pulse Oximetry 100 02/04/17 00:52 Temperature 98.3 F 02/04/17 00:52 Pulse Rate 88 02/04/17 03:36 Respiratory Rate 14 02/04/17 03:36 Blood Pressure 96/51 02/04/17 03:36 O2 Sat by Pulse Oximetry 100 02/04/17 03:36 Oxygen Delivery Oxygen Delivery Room Air Extremity Problem, Nontraumati - Medical Records Medical records reviewed: Yes I reviewed the patient's medical records. - Lab Data Lab results reviewed: Yes I reviewed the patient's lab results. Result diagrams: 02/04/17 02:00 02/04/17 02:00 Lab Results 02/04/17 02/04/17 Range/Units 02:00 02:00 WBC 16.2 H (4.3-11.1) K/mcL RBC 4.34 (3.82-4.97) M/mcL Hgb 13.1 (11.5-15.4) g/dL Hct 38.2 (35.3-44.9) % MCV 88.0 (83.0-100.0) fL MCH 30.2 (28.0-33.3) pg MCHC 34.3 (31.6-35.5) g/dL RDW 12.5 (11.5-14.5) % Plt Count 289 (140-400) K/mcL MPV 10.1 (9.4-12.4) fL Immature Gran % 0.4 (0-4) % Seg Neutrophils % 68.1 % Lymphocytes % 23.2 % Monocytes % 7.6 % Eosinophils % 0.4 % Basophils % 0.3 % Neutrophils # 11.0 H (1.6-8.9) K/mcL Lymphocytes # 3.8 (0.6-4.6) K/mcL Monocytes # 1.2 (0.0-1.3) K/mcL Eosinophils # 0.1 (0.0-0.6) K/mcL Basophils # 0.1 (0.0-0.2) K/mcL Sodium 139 (136-145) mEq/L Potassium 3.0 L (3.5-4.5) mEq/L Chloride 104 (98-109) mEq/L Carbon Dioxide 23 (19-29) mEq/L BUN 14 (7-20) mg/dL Creatinine 0.74 (0.57-1.11) mg/dL Est GFR ( Amer) > 60 (> 60) Est GFR (Non-Af Amer) > 60 (> 60) BUN/Creatinine Ratio 19 (6-26) Glucose 114 H (70-99) mg/dL Calculated Osmolality 289 (280-300) Calcium 9.3 (8.6-10.8) mg/dL Creatine Kinase 48 (29-168) Units/L - Radiology Data Radiology results reviewed: Yes I reviewed the patient's radiology results. Lower Extremity CT 02/04/17 01:37 IMPRESSION: 1. There is fluid and air noted in the musculature of the anterior compartment of the mid right thigh. There is also a small amount of edema noted in the subcutaneous fat superficial to this area along the anterior aspect of the thigh. While this could be related to the injection, an underlying myositis cannot be excluded. No focal fluid collection or abscess is identified. D/ / Adam Bain MD / Adam Bain MD Interpreting Provider: Adam Bain MD
[2017-02-04 02:14] LABS: Basophils # 0.1 K/mcL (0.0-0.2); Basophils % 0.3 %; Eosinophils # 0.1 K/mcL (0.0-0.6); Eosinophils % 0.4 %; Hematocrit 38.2 % (35.3-44.9); Hemoglobin 13.1 g/dL (11.5-15.4); Immature Granulocytes % 0.4 % (0-4); Lymphocytes # 3.8 K/mcL (0.6-4.6); Lymphocytes % 23.2 %; Mean Corpuscular HGB Conc 34.3 g/dL (31.6-35.5); Mean Corpuscular Hemoglobin 30.2 pg (28.0-33.3); Mean Platelet Volume 10.1 fL (9.4-12.4); Monocytes # 1.2 K/mcL (0.0-1.3); Monocytes % 7.6 %; Platelet Count 289 K/mcL (140-400); Red Blood Count 4.34 M/mcL (3.82-4.97); Red Cell Distribution Width 12.5 % (11.5-14.5); Segmented Neutrophils % 68.1 %
[2017-02-04 02:29] LABS: BUN/Creatinine Ratio 19 (6-26); Blood Urea Nitrogen 14 mg/dL (7-20); Calcium 9.3 mg/dL (8.6-10.8); Carbon Dioxide 23 mEq/L (19-29); Chloride 104 mEq/L (98-109); Creatine Kinase 48 Units/L (29-168); Glucose 114 mg/dL (70-99); Osmolality,Calculated 289 (280-300); Sodium 139 mEq/L (136-145); eGFR For African Americans > 60 (> 60); eGFR For Non-African Americans > 60 (> 60)
[2017-02-04] MEDS ORDERED: Ketorolac 30 MG/ML VIAL IVP ONE (03:28)
--- NOTE | 2017-02-04 04:53 | Internal Med History&Physical ---
Date of Encounter: 02/04/17 Time of Encounter: 04:51 Assessment and Plan (1) Right thigh pain Current visit: Yes Status: Acute Patient is complaining of right thigh pain related to penicillin G injection intramuscularly 2 days ago. There are no local signs of inflammation. She does have a white count of 16,000. No fever. CT scan showing evidence of air and fluid in the anterior compartment of the leg likely related to the injection. Will give nonsteroidal anti-inflammatory drugs. Distal capillary circulation and pulsations are intact. Orthopedic consultation. No clinical signs of compartment syndrome Internal Medicine - H&P: HPI Chief complaint: right thigh pain History of present illness: Ms. Palomino is a 47 year old female presents with emergency room today with the main complain of right thigh pain. Patient mentioned that 2 days ago she received an injection of penicillin G and the right thigh which received for pharyngitis. Patient started noticing tonight approximately 7 PM severe pain in the right thigh and difficulty with ambulation and weight-bearing. She denied any fever. She denies any drainage. She notes some difficulty with movement of the foot and leg mainly due to thigh pain. Past Med Surg Social Fam HX - Past Medical History Medical history: no medical history Psychiatric history: no psych history - Past Surgical History Surgical History: appendectomy, breast surgery, hysterectomy - Social History Smoking Status: Current every day smoker Alcohol use: occasionally Drug use: none - Family History Father Living Status: Hx Family Cardiac Disorders: Yes Hx Family Endocrine Disorder: Yes Internal Medicine - H&P: Meds Aspirin/Acetaminophen/Caffeine [Excedrin Migraine Caplet] 2 tab PO Q6H PRN 08/07 [History] Ibuprofen [Motrin] 800 mg PO Q8HR PRN 08/07/16 [History] Loratadine/Pseudoephedrine [Cvs Loratadine-D 24Hr Tablet] 1 each PO DAILY PRN [History] Prochlorperazine Maleate [Compazine] 10 mg PO Q6HR PRN #40 tablet 08/07/16 [Rx] SUMAtriptan succinate [Imitrex] 100 mg PO DAILY PRN #15 tablet 08/07/16 [Rx] Magic Mouthwash [Magic Mouthwash BLM] 10 ml PO QID PRN #240 ml 02/02/17 [Rx] 3 Allergy/AdvReac Type Severity Reaction Status Date / Time Bee Pollen AdvReac Swelling Verified 02/02/17 21:02 of Lip/Tongue/Throat [place] AdvReac Swelling Verified 02/02/17 21:02 of Lip/Tongue/Throat All Systems PM: A 10-system review of systems was performed and is negative for pertinent findings except as documented above in the HPI. Review of systems: 10 point review systems is negative except for HPI - Constitutional Vitals: Temp Pulse Resp BP Pulse Ox 97.9 F 79 18 87/56 100 02/04/17 04:18 02/04/17 04:18 02/04/17 04:18 02/04/17 04:18 02/04/17 04:18 Exam: Gen.: patient is alert oriented times 3 cardiac: normal S1 S2 no additional sounds or murmurs chest: no active wheezing or bronchial breathing abdomen soft nontender nondistended normal bowel sounds lower extremity: tenderness over quadriceps. No signs of inflammation. No drainage. Distal capillary pulsation and circulation intact Neuro: no new focal deficits Internal Med - H&P Results - Labs CBC & Chem 7: 02/04/17 02:00 02/04/17 02:00
[2017-02-04] MEDS ORDERED: Ondansetron 4 MG/2 ML VIAL IVP PRN (05:03)
[2017-02-04] MEDS ORDERED: *HR* Morphine 2 MG/ML SYRINGE IVP PRN (05:03)
[2017-02-04] MEDS ORDERED: Ketorolac 30 MG/ML VIAL IVP PRN (05:03)
[2017-02-04] MEDS: 0.9 % Sodium Chloride 1,000 ML IVC SCH ×2 (05:22→17:18)
--- NOTE | 2017-02-04 06:56 | Orthopedic Consult Note ---
Date of Encounter: 02/04/17 Time of Encounter: 06:54 History of Present Illness HPI: Ms. Palomino is a 47 year old female Status post injection into right thigh 2 days ago with increased pain and decreased motion. Patient was seen in the ER and initial concern for compartment syndrome which this patient definitely does not have. Patient has tenderness to the anterior upper thigh in the area of the injection with swelling consistent with reaction to intramuscular injection. CAT scan shows no significant abnormalities and expected findings following a muscular injection. She has had improvement on Flexeril and Toradol. Recommend warm compresses to thigh area. Patient is neurovascularly intact recommend physical therapy weightbearing as tolerated. No surgical intervention recommended at this time. Past Med Surg Social Fam HX - Past Medical History Medical history: no medical history Psychiatric history: no psych history - Past Surgical History Surgical History: appendectomy, breast surgery, hysterectomy - Social History Smoking Status: Current every day smoker Alcohol use: occasionally Drug use: none - Family History Father Living Status: Hx Family Cardiac Disorders: Yes Hx Family Endocrine Disorder: Yes Medications and Allergies Aspirin/Acetaminophen/Caffeine [Excedrin Migraine Caplet] 2 tab PO Q6H PRN 08/07 [History] Ibuprofen [Motrin] 800 mg PO Q8HR PRN 08/07/16 [History] Loratadine/Pseudoephedrine [Cvs Loratadine-D 24Hr Tablet] 1 each PO DAILY PRN [History] Prochlorperazine Maleate [Compazine] 10 mg PO Q6HR PRN #40 tablet 08/07/16 [Rx] SUMAtriptan succinate [Imitrex] 100 mg PO DAILY PRN #15 tablet 08/07/16 [Rx] Magic Mouthwash [Magic Mouthwash BLM] 10 ml PO QID PRN #240 ml 02/02/17 [Rx] 3 Allergy/AdvReac Type Severity Reaction Status Date / Time Bee Pollen AdvReac Swelling Verified 02/02/17 21:02 of Lip/Tongue/Throat [place] AdvReac Swelling Verified 02/02/17 21:02 of Lip/Tongue/Throat All Systems Reviewed: A 10-system review of systems was performed and is negative for pertinent findings except as documented above in the HPI. Physical Exam - Constitutional Vitals: Temp Pulse Resp BP Pulse Ox 97.6 F 71 18 88/55 95 02/04/17 06:40 02/04/17 06:40 02/04/17 06:40 02/04/17 06:40 02/04/17 06:40 Results - Labs Result Diagrams: 02/04/17 02:00 02/04/17 02:00 Labs: Abnormal lab results WBC 16.2 K/mcL (4.3-11.1) H 02/04/17 02:00 Neutrophils # 11.0 K/mcL (1.6-8.9) H 02/04/17 02:00 Potassium 3.0 mEq/L (3.5-4.5) L 02/04/17 02:00 Glucose 114 mg/dL (70-99) H 02/04/17 02:00 All other labs normal. Consult Discharge Plan - Plan
--- NOTE | 2017-02-04 13:35 | Internal Med Progress Note ---
Date of Encounter: 02/04/17 Time of Encounter: 11:30 - Assessment and plan (1) Right thigh pain Current Visit: Yes Status: Acute Assessment and plan: Right thigh pain - secondary to IM injection recently - possible mild acute cellulitis - no evidence of compartment syndrome Continue IV Toradol, Flexeril, IV fluids, IV Morphine as needed CT right lower extremity - mild edema, no focal fluid collection or abscess No indication for IV antibiotics at this time Orthopedics consult - advised warm compresses to the thigh area, physical therapy Labs in a.m., monitor closely, anticipate discharge tomorrow (2) DVT prophylaxis Current Visit: Yes Status: Acute Assessment and plan: SCDs, ambulate - Time Spent With Patient 25 - 35 minutes - Subjective Interval history: Examined this morning. Patient is awake and alert. Not in any distress. Denies chest pain or shortness of breath. No fever. Blood pressure has been running low. Tolerating oral diet. Complains of pain over her right thigh anterior aspect. No evidence of compartment syndrome. Pain seems to be improving with IV Toradol and also Flexeril. No other acute events or complaints. - Constitutional Vitals: Temp Pulse Resp BP Pulse Ox 97.9 F 76 18 84/54 98 02/04/17 11:40 02/04/17 11:40 02/04/17 11:40 02/04/17 11:40 02/04/17 11:40 General appearance: Present: cooperative, A&O X 3, pleasant, no acute distress, answers questions appropriately - Head Head exam: Present: atraumatic - Eye Eye exam: Present: EOMI - ENT ENT exam: Present: mucous membranes moist - Respiratory Respiratory exam: Present: CTAB. Absent: accessory muscle use, chest wall tenderness, rales, rhonchi, wheezes, tachypnea - Cardiovascular Cardiovascular exam: Present: RRR, +S1, +S2 - GI/Abdominal GI/Abdominal exam: Present: soft. Absent: distended, firm, guarding, tenderness - Extremities Exam Extremities exam: Present: radial pulses palpable and symmetrical. Absent: calf tenderness, cyanotic Additional comments: Patient does have tenderness over her right thigh anterior aspect. No erythema. IM injection site is seen with no erythema. Mild right lower leg edema. - Neurological Exam Neurological exam: Present: alert, oriented X3, no focal deficits. Absent: facial droop, speech deficit Internal Medicine: Result - Labs CBC & Chem 7: 02/04/17 02:00 02/04/17 02:00 Consult Discharge Plan - Plan Referrals: Sydney Morales, [employer] [Primary Care Provider] -
[2017-02-05 05:38] LABS: Basophils # 0.1 K/mcL (0.0-0.2); Basophils % 0.5 %; Eosinophils # 0.1 K/mcL (0.0-0.6); Eosinophils % 1.3 %; Hematocrit 31.7 % (35.3-44.9); Immature Granulocytes % 0.3 % (0-4); Lymphocytes # 3.7 K/mcL (0.6-4.6); Lymphocytes % 38.7 %; Mean Corpuscular HGB Conc 32.8 g/dL (31.6-35.5); Mean Corpuscular Hemoglobin 29.9 pg (28.0-33.3); Mean Corpuscular Volume 91.1 fL (83.0-100.0); Mean Platelet Volume 10.5 fL (9.4-12.4); Monocytes # 1.1 K/mcL (0.0-1.3); Monocytes % 11.5 %; Neutrophils # 4.5 K/mcL (1.6-8.9); Platelet Count 226 K/mcL (140-400); Red Blood Count 3.48 M/mcL (3.82-4.97); Red Cell Distribution Width 13.2 % (11.5-14.5); Segmented Neutrophils % 47.7 %
[2017-02-05 05:41] LABS: Hemoglobin 10.4 g/dL (11.5-15.4)
[2017-02-05 05:49] LABS: BUN/Creatinine Ratio 16 (6-26); Blood Urea Nitrogen 10 mg/dL (7-20); Carbon Dioxide 23 mEq/L (19-29); Chloride 109 mEq/L (98-109); Glucose 101 mg/dL (70-99); Osmolality,Calculated 287 (280-300); Sodium 139 mEq/L (136-145); eGFR For African Americans > 60 (> 60); eGFR For Non-African Americans > 60 (> 60)
[2017-02-05 06:41] VITALS: BP 98/64
--- NOTE | 2017-02-05 09:51 | Discharge Summary ---
Date of Encounter: 02/05/17 Time of Encounter: 08:30 - Discharge Diagnosis (1) Right thigh pain Priority: Primary Status: Acute Comments: Right thigh pain - secondary to IM injection recently - possible mild acute cellulitis - no evidence of compartment syndrome Continue Motrin, Flexeril, continue warm compresses to thigh area CT right lower extremity - mild edema, no focal fluid collection or abscess No indication for antibiotics at this time Orthopedics consult - advised warm compresses to the thigh area, physical therapy Stable for discharge today, follow-up with primary care physician, return if symptoms worsen - Discharge Medications Prescriptions: Ibuprofen [Motrin] 600 mg PO Q8HR PRN #20 tab PRN Reason: Moderate Pain Cyclobenzaprine HCl 5 mg PO TID PRN #14 tablet PRN Reason: Muscle Spasm Home Medications: Magic Mouthwash [Magic Mouthwash BLM] 10 ml PO QID PRN #240 ml 02/02/17 [Rx] Cyclobenzaprine HCl 5 mg PO TID PRN #14 tablet 02/05/17 [Rx] Ibuprofen [Motrin] 600 mg PO Q8HR PRN #20 tab 02/05/17 [Rx] Allergies/Adverse Reactions: 3 Allergy/AdvReac Type Severity Reaction Status Date / Time Bee Pollen AdvReac Swelling Verified 02/02/17 21:02 of Lip/Tongue/Throat [place] AdvReac Swelling Verified 02/02/17 21:02 of Lip/Tongue/Throat Date of admission: 02/04/17 03:51 Primary care physician: Sydney Morales CNP Consults: 02/04/17 06:57 Consult to Physical Therapy [CONS] Routine Comment: Evaluate, develop and implement POC Reason for Consult: rt thigh pain, pain with ambulation Anticipated date of discharge: 02/05/17 - Patient Status Disposition: Home, Self-Care Condition: Good Functional capacity at discharge: independent ambulation Overall status at discharge: patient is back to baseline - Discharge Instructions Follow Up With: Sydney Morales CNP [Primary Care Provider] - 02/13/17 8:10 am Forms: ED Satisfaction Letter - Diet and Activity Activity: increase activity as tolerated, resume usual activities as tolerated Diet: advance to your usual diet Hospital course: Ms. Palomino is a 47 year old female with no significant past medical history. She presented to the ED with complaints of right thigh pain. She apparently received an injection of penicillin G the right thigh about 2 days prior to arrival. She was treated for acute pharyngitis. She noticed that her pain in the right thigh was worsening. The injection was apparently given in the anterior aspect of right thigh. She was having difficulty with weightbearing and was worse with exertion. Patient was admitted for right thigh pain possibly due to abscess. Lower extremity CT showed a small amount of edema in the subcutaneous fat, no definite myositis, no fluid collection or abscess. Orthopedics has evaluated patient. Advised warm compresses to thigh area and physical therapy. No surgical intervention at this time. Patient did not have any signs of compartment syndrome. Patient was started on IV Toradol and also Flexeril by mouth. This seems to have helped along with warm compresses. Patient is now able to bear weight on the right leg and ambulates well. No other acute events or complaints. Patient states she feels better most go home. She has been advised to continue warm compresses and NSAIDs at home. Patient has been explained about her condition and plan of care in detail. She understood and agreed. No unanswered questions. Advised return if symptoms worsen. Follow up with primary care physician. Patient is being discharged in stable condition. - Time Spent with Patient Total time spent providing and/or coordinating discharge services: Less than 30 minutes - Constitutional Vitals: Temp Pulse Resp BP Pulse Ox 98.2 F 78 14 98/64 95 02/05/17 06:40 02/05/17 06:40 02/05/17 06:40 02/05/17 06:40 02/05/17 06:40 General appearance: Present: cooperative, A&O X 3, pleasant, no acute distress, answers questions appropriately - Head Head exam: Present: atraumatic - Eye Eye exam: Present: EOMI - ENT ENT exam: Present: mucous membranes moist - Respiratory Respiratory exam: Present: CTAB. Absent: accessory muscle use, chest wall tenderness, rales, rhonchi, wheezes, tachypnea - Cardiovascular Cardiovascular exam: Present: RRR, +S1, +S2 - GI/Abdominal GI/Abdominal exam: Present: soft. Absent: distended, firm, guarding, tenderness - Extremities Exam Extremities exam: Present: radial pulses palpable and symmetrical. Absent: calf tenderness, cyanotic, pedal edema Additional comments: Patient does have mild tenderness over her right thigh anterior aspect. No erythema. IM injection site is seen with no erythema. No edema. Seems to be improving. - Neurological Exam Neurological exam: Present: alert, oriented X3, no focal deficits. Absent: facial droop, speech deficit - VTE Documentation of Mechanical Device: Intermittent pneumatic compression device
== END 2017-02-05 11:46 | disposition home or self-care (01) ==
LOC: EMEROO 00:40 → 3NENU 00:40
PROVIDERS: ADMIT Family Medicine; ATTEND Student in an Organized Health Care Education/Training Program